=== PATIENT | male | born 1975 | race Caucasian/White ===

== ENCOUNTER 2018-02-02 18:58 | Inpatient (IN) | payer BC, OTHER ==
[~2018-02-02] VITALS: Ht 188 cm; Wt 79.4 kg
--- NOTE | 2018-02-02 21:01 | NUR ---
PRE-ADMISSION NOTE Pt seen in intake office. Pt is currently intoxicated. Pt has a steady gait. V/S: P:86, RR:18, SPO2:97%, BP:130/78. Pt is not c/o chest pain or difficulty breathing. Pt meets criteria for admission to the unit.
[2018-02-02] MEDS ORDERED: ONDANSETRON 4 MG/2 ML VIAL IM PRN (21:30)
[2018-02-02] MEDS ORDERED: diphenhydrAMINE 50 MG CAPSULE PO PRN (21:30)
[2018-02-02] MEDS ORDERED: MAG HYDROX/AL HYDROX/SIMETH 30 ML LIQUID UDC PO PRN (21:30)
[2018-02-02] MEDS ORDERED: LOPERAMIDE HCL 2 MG CAPSULE PO PRN ×2 (21:30)
[2018-02-02] MEDS ORDERED: BUPRENORPHINE HCL 2 MG TAB.SUBL SL PRN (21:30)
[2018-02-02] MEDS ORDERED: MIRALAX 17 GM POWD.PACK PO PRN (21:30)
[2018-02-02] MEDS ORDERED: ONDANSETRON ODT 4 MG TAB.RAPDIS SL PRN (21:30)
[2018-02-02] MEDS ORDERED: DICYCLOMINE HCL 20 MG TABLET PO PRN (21:30)
[2018-02-02] MEDS ORDERED: MAGNESIUM HYDROXIDE 30 ML LIQUID UDC PO PRN (21:30)
--- NOTE | 2018-02-02 21:57 | NUR ---
ADMISSION NOTE Pt is a 42 y/o male who is being admitted for medically supervised withdrawal from Opiates. Pt is currently intoxicated and not experiencing any s/s of withdrawal. Pt appears unkempt and disheveled. Pt has flat affect and is hyperactive. Pt is A/O to person, place, time, and purpose. However, his speech is pressured and his thoughts are racing and tangential. Pt states that withdrawal from Opiates typically includes body and joint aches, runny nose, irritability, insomnia, and anxiety. Pt denies h/o withdrawal induced seizures or delirium. Pt states current substance use as follows: 1. Heroin: 1.5-2 g daily for the past 3 mos. Pts last use was on 02/02/18 in the morning. Pt first began using 15 yrs ago. 2. Methamphetamine: [employer] 2-3x / wk for the past 3 mos. Pts last use on 02/02/18 in the morning. Pt first began using 9 yrs ago. Pt states that he is seeking treatment today because his substance use has led to a strain on his marriage. Pt states my gave me an ultimatum and I know she wont put up with it forever. Pt also states he needs to do this because of the courts. Pt has been to treatment in the past, the most recent was [facility] in November of 2017. Pt, however, was not able to stay sober for long after. Pt states the longest period of sobriety he has had was for 18 mos that ended about 9 mos ago. He doesnt know why or what triggers him to relapse. Pt does state that this time will be different because Katt made up mind to do it. I know that a needle in my arm is not right. Pt states he has a good support system back home including his and an AA sponsor. V/S: T:98.2, P:85, RR:18, SPO2:98%, BP:114/81. Pt denies any pain. Pulse is strong and regular. Respirations are unlabored and even. Skin is intact except for pick ríos and scabs. Pt has NKA and is full code. Pt follows a regular diet at home. Pt does not smoke. Pt is 62 and 175 lbs. Pt does not have a PCP. Educated pt about plan of care including medication regimen, group therapy, V/S Q4H, and rounding. Pt acknowledged understanding. Urine and blood work were collected. All safety measures instituted. Call light is within reach. Pt will continue to be monitored and needs met.
[2018-02-02 22:06] LABS: *AMPHETAMINE, URINE POSITIVE (NEGATIVE); *BARBITURATE, URINE NEGATIVE (NEGATIVE); *CANNABINOID, URINE NEGATIVE (NEGATIVE); *COCCAINE, URINE NEGATIVE (NEGATIVE); *OPIATE, URINE POSITIVE (NEGATIVE); *PHENCYCLIDINE SCREEN,URINE NEGATIVE (NEGATIVE)
--- NOTE | 2018-02-02 22:30 | NUR ---
MD COMMUNICATION Pt complains of difficulty falling asleep. MD made aware with new order for Trazodone 50 mg QHS PRN.
[2018-02-02] MEDS ORDERED: TRAZODONE 50 MG TABLET PO PRN (22:45)
[2018-02-02 23:02] LABS: BASOPHILS % (AUTO) 0.7 % (0.0-2.0); EOSINOPHILS # (AUTO) 0.2 K/uL (0.0-0.7); EOSINOPHILS % (AUTO) 3.4 % (0.0-7.0); HEMATOCRIT 41.4 % (36.7-47.1); HEMOGLOBIN 14.1 g/dL (12.5-16.3); LYMPHOCYTES # (AUTO) 2.6 K/uL (20.0-40.0); LYMPHOCYTES % (AUTO) 42.6 % (20.5-51.5); MEAN CORPUSCULAR HEMOGLOBIN 31.5 uug (23.8-33.4); MEAN CORPUSCULAR HGB CONC 34 g/dL (32.5-36.3); MEAN CORPUSCULAR VOLUME 92.1 fL (73.0-96.2); MONOCYTES # (AUTO) 0.9 K/uL (2.0-10.0); MONOCYTES % (AUTO) 15.6 % (0.0-11.0); NEUTROPHILS # (AUTO) 2.3 K/uL (1.8-8.9); NEUTROPHILS % (AUTO) 37.7 % (38.5-71.5); PLATELET COUNT (AUTO) 178 K/uL (152-348); WHITE BLOOD COUNT (AUTO) 6.1 K/uL (3.6-10.2)
--- NOTE | 2018-02-02 23:30 | NUR ---
PRN BENADRYL ADMINISTRATION Benadryl 50 mg given for sleep. Pt c/o insomnia. V/S WNL. Will reassess pt in 1 hr.
[2018-02-02 23:31] LABS: ALANINE AMINOTRANSFERASE 35 U/L (16-63); ALKALINE PHOSPHATASE 77 U/L (50-136); AMYLASE 73 U/L (25-115); ASPARTATE AMINOTRANSFERASE 34 U/L (15-37); BILIRUBIN,TOTAL 0.6 mg/dL (0.2-1.0); CARBON DIOXIDE 32 mmol/L (21-32); CHLORIDE 98 mmol/L (98-107); CREATININE 1.5 mg/dL (0.6-1.3); GLUCOSE 104 mg/dL (74-106); LIPASE 80 U/L (73-393); MAGNESIUM 2.2 mg/dL (1.8-2.4); POTASSIUM 3.9 mmol/L (3.5-5.1); TOTAL PROTEIN, SERUM 8.9 g/dL (6.4-8.2); UREA NITROGEN, BLOOD 41 mg/dL (7-18)
[2018-02-02 23:35] LABS: ETHANOL < 3 MG/DL (0-0)
--- NOTE | 2018-02-03 | NUR ---
COWS DEFERRED Pt is currently intoxicated and can not be properly assessed for COWS.
--- NOTE | 2018-02-03 00:30 | NUR ---
BERONICA ROBERTO REASSESSMENT Pt is in bed watching TV. Pt's respirations are unlabored and even. Pt states "I got caught up in a TV show. I'm sure if I closed my eyes and tried to fall asleep I would be able to". I advised pt turning off the TV might help. Pt acknowledged. Will continue to monitor pt.
[2018-02-03 00:42] LABS: EOSINOPHILS % (MANUAL) 1 % (0-8); LYMPHOCYTES % (MANUAL) 45 % (20-40); MONOCYTES % (MANUAL) 17 % (2-10); NEUTROPHILS % (MANUAL) 37 % (42-75)
--- NOTE | 2018-02-03 04:00 | NUR ---
COWS DEFERRED AND V/S REFUSED. Pt is in bed w/ his eyes closed. Pt's respirations are unlabored and even.
--- NOTE | 2018-02-03 07:05 | NUR ---
END OF SHIFT NOTE Endorsed pt to oncoming nurse, pt is currently in his room. Pt is a 42 y/o male A/O to person, place, time, and purpose. Pt was admitted for medically supervised withdrawal from Opiates. Pt was intoxicated upon admission and was not currently experiencing any s/s of withdrawal. Pts last substance use was in the morning of 02/02/18. Pt was disheveled and unkempt in appearance. Pt also had pressured speech and avoidant eye contact. PRN Benadryl 50mg given for sleep, noted effective. Unable to assess COWS due to intoxication and sleep. Pts fluid intake was 800ml and he voided 2 times. Pt slept for 5.5hrs. Call light is within reach.
[2018-02-03] MEDS ORDERED: 5 DAY TAPER BUPRENORPHINE -SERENITY PROTOCOL SL PRN ×2 (07:15)
--- NOTE | 2018-02-03 07:15 | NUR ---
Start of Shift: Patient is a 42 yr old male who was admitted to [facility] yesterday 02/02/18 for a medically supervised withdrawal from Opiates ( Heroin IV ) and Methamphetamines. He has not been placed on any taper as of yet but has PRN medications available. PRN meds given on PM shift : Benadryl. He slept for 6 + hours and is still asleep at this time, breathing even and unlabored, side rails up x2. Per report patient has not started withdrawing yet, no COWS reported. Continue to follow MD plan of care and offer support as needed.
[2018-02-03 08:00] VITALS: BP 108/62
--- NOTE | 2018-02-03 08:20 | NUR ---
PRN ROBAXIN/MOTRIN Robaxin 750mg PO and Motrin 400 MG PO given for c/o generalized all over body aches 7/10 pain score will reassess
--- NOTE | 2018-02-03 08:20 | NUR ---
PPD Non - Administered Patient states he had PPD placed at [facility] 3 days ago, small 2 mm Induration noted where pt says it was placed. Patient refused PPD test
[2018-02-03] MEDS: METHOCARBAMOL 750 MG TABLET PO PRN ×2 (08:21→16:59)
[2018-02-03] MEDS: IBUPROFEN 400 MG TABLET PO PRN ×2 (08:21→21:12)
[2018-02-03] MEDS: BUPRENORPHINE HCL 2 MG TAB.SUBL SL SCH ×4 (08:22→21:11)
--- NOTE | 2018-02-03 08:22 | NUR ---
COWS 14 Patient presents with withdrawal symptoms that include: Diaphoresis, chills, generalized body aches, runny nose, dilated pupils and sensitivity to light.
[2018-02-03] MEDS ORDERED: TUBERCULIN,PURIF.PROT.DERIV. 5 TU/0.1 ML TEST ID ONE (09:00)
--- NOTE | 2018-02-03 09:20 | NUR ---
PRN Reassess Patient states pain level is now 4/10 Robaxin 750 mg Po and Motrin 400 MG po effective in reducing body aches
[2018-02-03 12:00] VITALS: BP 103/69
--- NOTE | 2018-02-03 12:20 | NUR ---
COWS 13 Patients withdrawal symptoms include severe generalized body aches/spasms, diaphoresis, chills, decreased appetite, restless lags, agitation and anxiety
--- NOTE | 2018-02-03 12:30 | NUR ---
PRN Tylenol Tylenol 650MG PO given for body aches 01/28, will reassess
[2018-02-03] MEDS: ACETAMINOPHEN 325 MG TABLET PO PRN ×2 (12:36→21:12)
--- NOTE | 2018-02-03 13:30 | NUR ---
PRN Reassess Patient states that pain level is 4/10 , tylenol along with the scheduled 4MG Subutex helped ease body aches.
[2018-02-03] MEDS: CLONIDINE HCL 0.1 MG TABLET PO PRN ×2 (13:49→21:12)
--- NOTE | 2018-02-03 13:50 | NUR ---
PRN Clonidine Clonidine 0.1MG PO given for withdrawal symptoms of anxiety, agitation and restlessness
--- NOTE | 2018-02-03 14:50 | NUR ---
PRN Clonidine Reassess Patient is asleep in bed, breathing even and unlabored , side rails up x2
--- NOTE | 2018-02-03 15:50 | NUR ---
COWS 15 Patient presents with withdrawal symptoms that include severe generalized body aches/spasms, diaphoresis, chills , agitation, irritability, runny nose, goose bumps and lethargy.
[2018-02-03 17:00] VITALS: BP 98/63
--- NOTE | 2018-02-03 17:00 | NUR ---
PRN Robaxin Robaxin 750 mg PO given with scheduled 4 MG Subutex, patient states pain level is 10/10 generalized body aches. will monitor and reassess
--- NOTE | 2018-02-03 18:00 | NUR ---
PRN Robaxin Reassess Patient states pain level is 4/10 generalized body aches, Robaxin effective, continue to monitor
--- NOTE | 2018-02-03 18:38 | NUR ---
End Of Shift : Patient is a 42 yr old male who was admitted to [facility] on 02/02/18 for a medically supervised withdrawal from Opiates ( Heroin IV ) and Methamphetamines. Today he started a 5 day Subutex taper and is tolerating it well. Patients withdrawal symptoms include generalized body aches and muscle spasms, chills, diaphoresis, runny nose, bilateral hand tremors, increased agitation, anxiety and restlessness. PRN medications given on this shift : Motrin 400MG PO x2, Robaxin 750 MG PO x2, Tylenol 650 MG PO and Clonidine 0.1MG PO. He has been isolative to his room this shift and does not interact with his peers , he speaks in a low voice and has a flat depressed affect. Fluid intake this shift 1100 ML, 2 Voids and 1 BM. Last COWS was 15 @ 1600. Continue to follow MD plan of care and offer support as needed. Endorsed to shift leader.
--- NOTE | 2018-02-03 19:15 | NUR ---
START OF SHIFT Patient is a 42-year-old male admitted on 02/02/18 for opiate withdrawal. Patient is currently on 5-day Subutex taper, tolerating well; today was day 1 of taper. Per endorsement, patients last COWS was 15. Patient received the following PRN medications: Motrin, Robaxin x2, Tylenol, and Clonidine; noted to be effective. Upon assessment, patient appears disheveled and is obviously odorous, as well as his room. Patient is alert and oriented, coherent but isolative to his room. Patient complains of 10/10 generalized body aches stating all my joints hurt. Patient reports anxiety and difficulty sleeping. Patient is on fall precautions, denies history of seizures and refuses to keep his side rails up stating, I have never needed guard rails in my life. SN explained risks of fall or injury related to keeping side rails down; patient verbalized understanding. Safety measures in place, bed locked in low position, call light within reach. Will continue to monitor.
[2018-02-03 20:00] VITALS: BP 120/78
--- NOTE | 2018-02-03 20:00 | NUR ---
COWS 15 Patient reports chills, sweats, feeling anxious and agitated, 10/10 body aches (joints), and restlessness. COWS is 15. Will administer medications as ordered; will continue to monitor.
--- NOTE | 2018-02-03 21:12 | NUR ---
PRN CLONIDINE, TRAZODONE, MOTRIN & TYLENOL Patient reports anxiety, agitation, difficulty sleeping, generalized body aches and overall discomfort. PRN Clonidine, Trazodone, Motrin, and Tylenol given PO. Safety measures in place, patient continues to refuse side rails, bed locked in low position, call light within reach. Will monitor for effectiveness.
--- NOTE | 2018-02-03 22:12 | NUR ---
PRN CLONIDINE, TRAZODONE, MOTRIN & TYLENOL REASSESSMENT Patient states that he feels "a little better" and that he is "going to bed now." PRN medications noted to be somewhat effective in relieving patient's symptoms. Safety measures in place, bed locked in low position, call light within reach. Will continue to monitor.
[2018-02-04] VITALS: BP 98/50
--- NOTE | 2018-02-04 | NUR ---
COWS DEFERRED COWS deferred at this time due to patient sleeping; to be assessed and scored while patient is awake. Safety measures in place, bed locked in low position, call light within reach. Will continue to monitor.
--- NOTE | 2018-02-04 04:00 | NUR ---
VITALS REFUSED, COWS DEFERRED Patient refused to be bothered or disturbed and adamantly requested that vitals not be taken while he was sleeping. COWS deferred at this time due to patient sleeping. Respirations even and unlabored, 14/min. Safety measures in place, bed locked in low position, call light within reach. Will continue to monitor.
--- NOTE | 2018-02-04 06:00 | NUR ---
END OF SHIFT Patient is a 42-year-old male admitted on 02/02/18 for opiate withdrawal. Patient is currently on 5-day Subutex taper, tolerating well; today will be day 2 of taper. Patients last COWS was 15. Patient received the following PRN meds last night: Clonidine, Trazodone, Motrin, and Tylenol; noted to be effective. Patient slept for 7 hours, total intake of 655mL, void x1, stool x0. Patient is on fall precautions, denies history of seizures and refuses to have side rails up. SN explained risks of fall/injury related to keeping side rails down; patient verbalized understanding. Safety measures in place, bed locked in low position, call light within reach. Endorsed to Rosanna Henderson RN, at 0600.
--- NOTE | 2018-02-04 07:05 | NUR ---
END OF SHIFT Endorsed from Joan TORRES. Pt remained asleep since endorsement, pt stable. Endorsed to day shift nurse.
[2018-02-04 08:00] VITALS: BP 103/65
[2018-02-04] MEDS: CLONIDINE HCL 0.1 MG TABLET PO PRN (08:12)
--- NOTE | 2018-02-04 08:55 | NUR ---
START OF SHIFT: Received Pt A/O X 4. He presents with irritable mood and angry affect. He C/O anxiety,restlessness,chills, sweats, body aches and irritability. COWS 15. He is on a 5 d Subutex taper to manage s/s of w/d. PRN Clonidine given to manage anxiety,chills and sweats. Encouraged increased fluids to assist in facilitating detox process. He states he wants to stay in bed and try to sleep more as he states having a restless night of sleep last night. Will continue to monitor and manage s/s of w/d.
[2018-02-04] MEDS ORDERED: BUPRENORPHINE HCL 2 MG TAB.SUBL SL SCH (09:00)
[2018-02-04 12:00] VITALS: BP 114/72
--- NOTE | 2018-02-04 12:00 | NUR ---
COWS 12 Pt continues to present irritable with complaints of body aches,sweats,chills,anxiety and restlessness.
--- NOTE | 2018-02-04 13:55 | NUR ---
DISCHARGE AMA: Pt left AMA despite intervention from multidisciplinary team. He is A/O x 4. Pt was adamant about leaving after potential consequences of leaving AMA were explained. Pt expressed verbal understanding. He denies S/I and H/I. Belongings returned. A list of resources provided for Pt.. SQE escorted Pt out of building at 1353.
[2018-02-04 19:05] LABS: HEPATITIS B SURFACE AG Positive (Negative)
[2018-02-05] MEDS ORDERED: BUPRENORPHINE HCL 2 MG TAB.SUBL SL SCH ×2 (09:00→15:00)
[2018-02-06] MEDS ORDERED: BUPRENORPHINE HCL 2 MG TAB.SUBL SL SCH (09:00)
[2018-02-07] MEDS ORDERED: BUPRENORPHINE HCL 2 MG TAB.SUBL SL SCH (09:00)
== END 2018-02-04 13:53 | disposition left against medical advice (07) | DRG 894 ==
LOC: SRC 20:19
PROVIDERS: ADMIT Family Medicine Addiction Medicine; ATTEND Family Medicine Addiction Medicine
PROC: HZ2ZZZZ Detoxification Services for Substance Abuse Treatment (ICD-10-PCS; principal; 2018-02-02)
DX: F11.23 Opioid dependence with withdrawal (principal); F15.23 Other stimulant dependence with withdrawal; F39 Unspecified mood [affective] disorder; F41.9 Anxiety disorder, unspecified
CPT/HCPCS: 36415; 80307; 80324; 80361; 83690; 83735; 85025; 86580; 86592; 86705; 86803; 87340; 87806; G0480; Q0163

== ENCOUNTER 2018-02-19 23:45 | Emergency (ER) | payer BC, OTHER ==
[~2018-02-19] VITALS: Ht 188 cm; Wt 83.9 kg
--- NOTE | 2018-02-20 00:35 | NUR ---
Dr. Kevin at bedside for MSE.
--- NOTE | 2018-02-20 00:46 | NUR ---
Patient eloped from facility. ER physician notified. Pt was triaged and seen by MD. Pt last seen 44.
== END 2018-02-20 00:48 | disposition left against medical advice (07) ==
LOC: ER 23:51
DX: F11.10 Opioid abuse, uncomplicated (principal); F15.10 Other stimulant abuse, uncomplicated
CPT/HCPCS: A4663